=== PATIENT | female | born 1960 | race Caucasian/White ===

== ENCOUNTER 2022-04-22 19:47 | Inpatient (IN) ==
[2022-04-22] MEDS ORDERED: Albuterol/Ipratropium NEB.SOL (2.5/0.5 MG) 3 ML NEB.SOLN INH ONE (20:10)
[2022-04-22 20:54] LABS: PCO2 Arterial 26 mmHg (35-45); PO2 Arterial 69 mmHg (80-100)
[2022-04-22 21:45] LABS: Hematocrit 31 % (35-47); Mean Corpuscular HGB Conc 33 g/dL (31-36); Mean Corpuscular Hemoglobin 33 pg (27-31); Mean Corpuscular Volume 102 fL (80-97); Red Blood Count 3.03 10^6 /uL (3.70-4.87); Red Cell Distribution Width 18 % (10-15); White Blood Count 7.6 10^3/uL (3.5-10.8)
[2022-04-22 21:53] LABS: Lipase 246 U/L (11.0-82.0)
[2022-04-22 21:55] LABS: High Sens Troponin Baseline 444 pg/mL (<15)
[2022-04-22] MEDS ORDERED: Ondansetron 4 mg VIAL 2 MG/ML 2 ml VIAL IV ONE (22:00)
[2022-04-22] MEDS ORDERED: Furosemide 40 mg/4 ml IV VIAL IV ONE (22:00)
[2022-04-22 22:07] LABS: ABS Lymphocytes 0.5 10^3/ul (1.0-4.8); ABS Monocytes 1.1 10^3/ul (0-0.8); ABS Neutrophils 5.9 10^3/ul (1.5-7.7); Nucleated Red Blood Cells % 0.1; Platelet Count 89 10^3/uL (150-450)
[2022-04-22] MEDS ORDERED: methylPREDNISolone SOD SUCC 125 mg 2 ML VIAL IV ONE (22:39)
[2022-04-22] MEDS ORDERED: Morphine 4 MG/ML VIAL (1 ml) IV ONE (23:05)
[2022-04-22] MEDS ORDERED: Nitro 2% OINT (Nitroglycerin) 1 INCH/PAK TOPICAL ONE (23:06)
[2022-04-22 23:13] LABS: High Sensitivity Troponin 1 Hr 428 pg/mL (<15)
[2022-04-22 23:17] LABS: Magnesium 1.5 mg/dL (1.9-2.7)
[2022-04-22 23:55] LABS: Albumin 3.6 g/dL (3.2-5.2); Calcium 8.8 mg/dL (8.6-10.3); Potassium 4.3 mmol/L (3.5-5.0); Total Bilirubin 2.4 mg/dL (0.2-1.0)
[2022-04-23 00:01] LABS: Albumin/Globulin Ratio 1.3 (1-3); Globulin 2.7 g/dL (2-4); Total Protein 6.3 g/dL (6.4-8.9); eGFR CKD-EPI 16.6 (>60)
[2022-04-23] MEDS ORDERED: Furosemide 40 mg/4 ml IV VIAL IV ONE (00:37)
[2022-04-23] MEDS ORDERED: Nitro 2% OINT (Nitroglycerin) 1 INCH/PAK ONE (00:43)
[2022-04-23] MEDS: Nitro 2% OINT (Nitroglycerin) 1 INCH/PAK TOPICAL SCH ×3 (00:46→14:49)
[2022-04-23] MEDS ORDERED: Albuterol/Ipratropium NEB.SOL (2.5/0.5 MG) 3 ML NEB.SOLN INH ONE (00:55)
[2022-04-23] MEDS ORDERED: Magnesium Sulfate IV 3 GM in NS 0.9% 100 ml BAG 100 ML IVPB ONE (01:48)
[2022-04-23] MEDS ORDERED: Albuterol/Ipratropium NEB.SOL (2.5/0.5 MG) 3 ML NEB.SOLN INH PRN (02:28)
[2022-04-23 02:32] LABS: Urine Appearance Clear; Urine Color Amber; Urine Glucose Negative (Negative)
[2022-04-23 02:33] LABS: Urine Ketones Trace (Negative)
[2022-04-23 02:34] LABS: Urine Nitrite Negative (Negative); Urine Protein 3+ (>=300 mg/dL) (Negative); Urine Urobilinogen 0.2 (Negative) (Negative); Urine pH 5.5 (5.0-9.0)
[2022-04-23] MEDS ORDERED: Morphine 2 MG/ML SYRINGE IV ONE ×2 (02:34→09:48)
[2022-04-23] MEDS: Ondansetron 4 mg VIAL 2 MG/ML 2 ml VIAL IV PRN (02:45)
[2022-04-23 02:57] LABS: Urine Bacteria Absent (Absent); Urine Red Blood Cell 2+(6-10/hpf) (Absent); Urine Squamous Epithelial Cell Present (Absent); Urine Transitional Epithelial Present (Absent); Urine White Blood Cell 2+(11-20/hpf) (Absent)
[2022-04-23 07:01] LABS: Albumin 3.6 g/dL (3.2-5.2); Albumin/Globulin Ratio 1.2 (1-3); Calcium 8.9 mg/dL (8.6-10.3); Globulin 2.9 g/dL (2-4); Potassium 4.3 mmol/L (3.5-5.0); Total Bilirubin 2.5 mg/dL (0.2-1.0); Total Protein 6.5 g/dL (6.4-8.9); eGFR CKD-EPI 14.2 (>60)
[2022-04-23 07:05] LABS: ABS Lymphocytes 0.2 10^3/ul (1.0-4.8); ABS Monocytes 0.1 10^3/ul (0-0.8); ABS Neutrophils 4.1 10^3/ul (1.5-7.7); Hematocrit 31 % (35-47); Hemoglobin 10.3 g/dL (12.0-16.0); Lymphocyte % 5.1 %; Mean Corpuscular HGB Conc 34 g/dL (31-36); Mean Corpuscular Hemoglobin 35 pg (27-31); Mean Corpuscular Volume 103 fL (80-97); Mean Platelet Volume 8.9 fL (7.4-10.4); Nucleated Red Blood Cells % 0.2; Platelet Count 96 10^3/uL (150-450); Red Blood Count 2.97 10^6 /uL (3.70-4.87); Red Cell Distribution Width 18 % (10-15); White Blood Count 4.4 10^3/uL (3.5-10.8)
[2022-04-23 07:57] LABS: Osmolality Serum 278 mOsm/kg (275-295)
[2022-04-23] MEDS: Heparin 1,000 UNIT/ML 10 ml (10,000 UNITS) CATHLAB/DIALYSIS DIALYSIS ONE ×2 (10:51→12:05)
[2022-04-23 11:56] LABS: High Sensitivity Troponin 1 Hr 386 pg/mL (<15)
[2022-04-23] MEDS: Aspirin EC 81 mg TAB.EC (enteric coated) PO SCH (14:14)
[2022-04-23] MEDS: Furosemide 40 mg/4 ml IV VIAL IV SCH ×2 (14:16→21:16)
[2022-04-23] MEDS: Morphine 2 MG/ML SYRINGE IV PRN ×2 (14:50→22:55)
[2022-04-23 20:24] LABS: Hepatitis B Surface Ab Immune (Immune)
[2022-04-24] MEDS: Nitro 2% OINT (Nitroglycerin) 1 INCH/PAK TOPICAL SCH (06:14)
[2022-04-24] MEDS: Morphine 2 MG/ML SYRINGE IV PRN (07:46)
[2022-04-24 07:59] LABS: CO2 Carbon Dioxide 24 mmol/L (22-32); Calcium 8.7 mg/dL (8.6-10.3); Chloride 90 mmol/L (101-111); Magnesium 2.4 mg/dL (1.9-2.7); Sodium 127 mmol/L (135-145)
[2022-04-24 08:05] LABS: Blood Urea Nitrogen 21 mg/dL (6-24); Glucose 89 mg/dL (70-100); eGFR CKD-EPI 19.4 (>60)
[2022-04-24 08:15] LABS: ABS Lymphocytes 1.1 10^3/ul (1.0-4.8); ABS Neutrophils 5.9 10^3/ul (1.5-7.7); Eosinophil % 0.1 %; Hematocrit 32 % (35-47); Hemoglobin 10.4 g/dL (12.0-16.0); Lymphocyte % 13.3 %; Mean Corpuscular HGB Conc 33 g/dL (31-36); Mean Corpuscular Hemoglobin 34 pg (27-31); Mean Corpuscular Volume 103 fL (80-97); Mean Platelet Volume 9.5 fL (7.4-10.4); Nucleated Red Blood Cells % 0.4; Platelet Count 165 10^3/uL (150-450); Red Blood Count 3.05 10^6 /uL (3.70-4.87); Red Cell Distribution Width 19 % (10-15); White Blood Count 8.1 10^3/uL (3.5-10.8)
[2022-04-24] MEDS: Ondansetron 4 mg VIAL 2 MG/ML 2 ml VIAL IV PRN (08:15)
[2022-04-24 08:37] LABS: Anion Gap 13 mmol/L (2-11)
[2022-04-24] MEDS: Aspirin EC 81 mg TAB.EC (enteric coated) PO SCH (10:46)
[2022-04-24] MEDS: Furosemide 40 mg/4 ml IV VIAL IV SCH (10:47)
[2022-04-24 11:17] LABS: INR 1.24 (0.89-1.11)
[2022-04-24 12:00] VITALS: BP 102/68
== END 2022-04-24 14:53 | disposition left against medical advice (07) | DRG 194 ==
LOC: ED 19:47 → SUATTDRO 04-23 01:44 → EDHOLD 04-23 01:44 → MEDTELE 04-23 08:29
PROVIDERS: ADMIT Internal Medicine; ATTEND Family Medicine